=== PATIENT | male | born 1965 | race Caucasian/White ===

== ENCOUNTER 2016-10-24 13:49 | Inpatient (IN) | payer SELFPAY ==
[~2016-10-24] VITALS: Ht 177.8 cm; Wt 100.0 kg
[~2016-10-24 13:49] MED LIST: LACTATED RINGER'S 1000 ML INJ 2,000 ML IV ONE; NALOXONE HCL 2 MG/2 ML VIAL IV ONE; ONDANSETRON HCL 4 MG/2 ML VIAL IV PUSH ONE; PHENYLEPH/NS 1000 MCG/10 ML SYR IV ONE; PROPOFOL 200 MG/20 ML AMP IV ONE
[2016-10-24 13:51] VITALS: BP 205/125; PULSE 130; RESP 20; TEMP 97.7; O2SAT 97
--- NOTE | 2016-10-24 14:15 | PD ---
Physical Exam Date Seen by Provider: Oct 24, 2016 Time Seen by Provider: 14:11 Narrative Patient seen in Triage with Injection type injury to Left Dorsal Proximal Finger from Pain Sprayer at Work approximately 1 hour prior to arrival. Patient has immediate pain and swelling into the dorsal hand. ROM intact, but limited by swelling. Patient denies numbness. No other complaints. Vital signs stable. Patient waiting on room Placement. Data Data Last Documented VS Vital Signs Date Time Temp Pulse Resp B/P Pulse Ox O2 Delivery O2 Flow Rate FiO2 10/24/16 13:51 97.7 130 20 205/125 97 Nasal Cannula [facility] Medical Record Reviewed: Yes Supervised Visit with LA: Yes Condition: Stable Jeffy Rocha Oct 24, 2016 14:15
--- NOTE | 2016-10-24 14:48 | PD ---
HPI Chief Complaint: Injury Time Seen by Provider: 14:47 Travel History International Travel<30 days: No Contact w/Intl Traveler<30days: No Traveled to known affect area: No History of Present Illness HPI 51-year-old male came to the emergency room with history of left hand injury from a spray paint gun. 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 Patient accidentally shot at his left hand index finger dorsally with the paint gun. The patient injected into the hand under the skin surface. There was immediate swelling of the hand which is progressively worsening. This happened 2 hours ago. Patient is complaining of pain. He denies of any medical problems but he does not have a primary care. Patient speaks Vietnamese only and his friend is doing the translation [facility] Past Medical History Narrative Medical List of his past medical, surgical, social and family history was reviewed from the nursing note. Social History Tobacco Use: Yes Allergies-Medications (Allergen,Severity, Reaction): Coded Allergies: No Known Allergies (Unverified , 10/24/16) Comments No known drug allergies. Reported Meds & Prescriptions Reported Meds & Active Scripts Active No Active Prescriptions or Reported Medications Narrative Medication List of his home medications reviewed from the nursing note. Review of Systems Except as stated in HPI: all other systems reviewed are Neg Physical Exam Narrative GENERAL: Awake, alert, moderate distress SKIN: Focused skin assessment warm/dry. HEAD: Atraumatic. Normocephalic. EYES: Pupils equal and round. No scleral icterus. No injection or drainage. ENT: No nasal bleeding or discharge. Mucous membranes pink and moist. NECK: Trachea midline. No JVD. CARDIOVASCULAR: Regular rate and rhythm. No murmur appreciated. RESPIRATORY: No accessory muscle use. Clear to auscultation. Breath sounds equal bilaterally. GASTROINTESTINAL: Abdomen soft, non-tender, nondistended. Hepatic and splenic margins not palpable. MUSCULOSKELETAL: No obvious deformities. No clubbing. No cyanosis. No edema. Left hand is swollen on the radial aspect including the index finger and the hypothenar muscle. Erythema of the skin with a puncture wound with white paint and serous material discharging from the puncture wound. Moderate tenderness to touch. NEUROLOGICAL: Awake and alert. No obvious cranial nerve deficits. Motor grossly within normal limits. Normal speech. PSYCHIATRIC: Appropriate mood and affect; insight and judgment normal. Data Data Last Documented VS Vital Signs Date Time Temp Pulse Resp B/P Pulse Ox O2 Delivery O2 Flow Rate FiO2 10/24/16 16:30 122 16 211/106 96 Room Air 10/24/16 13:51 97.7 Orders Hand, Complete ([id number]) (10/24/16 ) Cefazolin 2 Gm Premix (Ancef 2 Gm Premix (10/24/16 15:00) Tetanus/Diphtheria Tox Adult (Tetanus/Di (10/24/16 15:00) Morphine Inj (Morphine Inj) (10/24/16 15:00) Complete Blood Count With Diff (10/24/16 14:57) Basic Metabolic Panel (Bmp) (10/24/16 14:57) Prothrombin Time / Inr (Pt) (10/24/16 14:57) Sodium Chlor 0.9% 1000 Ml Inj (Ns 1000 M (10/24/16 16:15) Morphine Inj (Morphine Inj) (10/24/16 17:00) Admit Order (Ed Use Only) (10/24/16 16:49) Labs Laboratory Tests Test 10/24/16 15:27 White Blood Count 11.1 TH/MM3 Red Blood Count 4.87 MIL/MM3 Hemoglobin 15.1 GM/DL Hematocrit 43.0 % Mean Corpuscular Volume 88.2 FL Mean Corpuscular Hemoglobin 30.9 PG Mean Corpuscular Hemoglobin 35.0 % Concent Red Cell Distribution Width 13.3 % Platelet Count 278 TH/MM3 Mean Platelet Volume 8.8 FL Neutrophils (%) (Auto) 72.7 % Lymphocytes (%) (Auto) 18.3 % Monocytes (%) (Auto) 7.0 % Eosinophils (%) (Auto) 1.5 % Basophils (%) (Auto) 0.5 % Neutrophils # (Auto) 8.1 TH/MM3 Lymphocytes # (Auto) 2.0 TH/MM3 Monocytes # (Auto) 0.8 TH/MM3 Eosinophils # (Auto) 0.2 TH/MM3 Basophils # (Auto) 0.1 TH/MM3 CBC Comment DIFF FINAL Differential Comment Prothrombin Time 10.3 SEC Prothromb Time International 0.9 RATIO Ratio Sodium Level 140 MEQ/L Potassium Level 3.8 MEQ/L Chloride Level 105 MEQ/L Carbon Dioxide Level 27.8 MEQ/L Anion Gap 7 MEQ/L Blood Urea Nitrogen 20 MG/DL Creatinine 1.47 MG/DL Estimat Glomerular Filtration 51 ML/MIN Rate Random Glucose 128 MG/DL Calcium Level 9.6 MG/DL MDM Medical Decision Making Medical Screen Exam Complete: Yes Emergency Medical Condition: Yes Medical Record Reviewed: Yes Differential Diagnosis Patient gun injury Narrative Course 4:30 PM I discussed the case earlier with the hand surgeon Dr. Larsen. She wanted the picture of the hand wound to be sent to her which has been done. She wants the patient to be nothing by mouth. After she finishes at her office she is going to come and take the patient to the OR. Patient last ate or drank at 11:30 AM. She wanted the patient to be admitted to the hospitalist which has been done. Patient has been given one dose of Ancef and tetanus since he did not remember his last tetanus dose. He is getting IV fluid bolus as well. Blood tests showed some renal insufficiency which is unknown onset. Patient was medicated for pain. Procedures EKG Prior to Arrival: No Physician Communication Physician Communication Dr. Larsen Diagnosis Primary Impression: High-pressure injection injury of finger of left hand Qualified Code: S69.82XA - High-pressure injection injury of finger of left hand, initial encounter Admitting Information Admitting Physician Requests: Admit Scripts No Active Prescriptions or Reported Meds Condition: Stable Rafiq Marcus MD Oct 24, 2016 14:48
[2016-10-24] MEDS ORDERED: MORPHINE SULFATE 4 MG/ML INJ IV PUSH ONE ×2 (15:00→17:00)
[2016-10-24] MEDS ORDERED: ceFAZolin 2 GM PREMIX 50 ML IV ONE (15:00)
[2016-10-24] MEDS ORDERED: TETANUS/DIPHTHERIA TOXOID ADULT 0.5 ML VIAL IM ONE (15:00)
[2016-10-24 15:36] LABS: AUTOMATED NEUTROPHIL # 8.1 TH/MM3 (1.8-7.7); BASOPHIL # 0.1 TH/MM3 (0-0.2); BASOPHIL % 0.5 % (0.0-2.0); EOSINOPHIL # 0.2 TH/MM3 (0-0.4); EOSINOPHIL % 1.5 % (0.0-4.0); HEMO FLAGS DIFF FINAL; LYMPH % 18.3 % (9.0-44.0); MEAN CELL VOLUME 88.2 FL (80.0-100.0); MEAN CORPUSCULAR HEMOGLOBIN 30.9 PG (27.0-34.0); NEUT % 72.7 % (16.0-70.0); PLATELET COUNT 278 TH/MM3 (150-450); RED BLOOD COUNT 4.87 MIL/MM3 (4.50-5.90); RED CELL DISTRIBUTION WIDTH 13.3 % (11.6-17.2); WHITE BLOOD COUNT 11.1 TH/MM3 (4.0-11.0)
--- NOTE | 2016-10-24 15:56 | RADRPT ---
EXAM DATE/TIME: 10/24/2016 15:12 [facility] COMPARISON: No previous studies available for comparison. INDICATIONS : Trauma to Left 2nd digit today when he hit his hand with a paint sprayer. Pt is righ thand dominant. MEDICAL HISTORY : None. SURGICAL HISTORY : None. ENCOUNTER: Initial ACUITY: 1 day PAIN SCORE: 10/10 LOCATION: Left Hand FINDINGS: 3 views left hand reveal linear high density material tracking along the proximal phalanx of the seco nd finger. The density is less than that of cortical bone. This would be consistent with the history of injected paint. No air is observed. Soft tissue swelling noted. No fracture or dislocation. CONCLUSION: Foreign material tracking along the proximal phalanx of the second finger. Dario Lowe Jr., MD on October 24, 2016 at 15:52 Board Certified Radiologist. This report was verified electronically.
[2016-10-24 15:57] LABS: BICARBONATE 27.8 MEQ/L (21.0-32.0); POTASSIUM 3.8 MEQ/L (3.5-5.1)
[2016-10-24 16:06] LABS: INTERNATIONAL NORMALIZED RATIO 0.9 RATIO; PROTHROMBIN TIME - PATIENT 10.3 SEC (9.8-11.6)
[2016-10-24] MEDS ORDERED: SODIUM CHLOR 0.9% 1000 ML INJ 1,000 ML IV ONE (16:15)
[2016-10-24 16:30] VITALS: BP 211/106; PULSE 122; RESP 16; O2SAT 96
[2016-10-24] MEDS ORDERED: ONDANSETRON HCL 4 MG/2 ML VIAL IVP PRN (17:15)
[2016-10-24] MEDS ORDERED: ACETAMINOPHEN/HYDROcodone 325 MG/5 MG TAB PO PRN (17:15)
[2016-10-24] MEDS ORDERED: HYDROmorphone HCL PF 1 MG/ML VIAL IV PRN (17:15)
[2016-10-24] MEDS ORDERED: SODIUM CHLORIDE 0.9% FLUSH 10 ML FLUSH IV FLUSH PRN (17:15)
[2016-10-24] MEDS ORDERED: HYDROmorphone HCL 2 MG TAB PO PRN (17:15)
[2016-10-24] MEDS ORDERED: MAGNESIUM HYDROXIDE SUSP 30 ML CUP PO PRN (17:15)
[2016-10-24] MEDS ORDERED: BISACODYL 10 MG SUPP RECTAL PRN (17:15)
[2016-10-24] MEDS ORDERED: NALOXONE HCL 0.4 MG/ML AMP IV PRN (17:15)
[2016-10-24] MEDS ORDERED: MORPHINE SULFATE 4 MG/ML INJ IV PRN (17:15)
--- NOTE | 2016-10-24 17:23 | HHI.HP ---
[facility] Service [facility] Primary Care Physician No Primary Care Physician Admission Diagnosis hand paint injection injury Diagnoses: Chief Complaint: Accidental injury with Injecting left hand with painting on Travel History International Travel<30 Days: No Contact w/Intl Traveler <30 Da: No Traveled to Known Affected Are: No History of Present Illness 51 years old male presented to the ED with anticipation of injury of injection pain spray or gone in his left dorsal side of the hand about 1 hour prior to arrival, patient have significant swelling in the dorsum of the hand with severe pain and tenderness range of motion of the arm intact there is an area of draining yellowish glue he liquid. Patient rated his pain as 10 out of 10. His blood pressure is 210/120, patient denied being aware of any problem with hypertension, also his heart rate is in the 110 Review of Systems All 10 systems reviewed and was positive for what is mentioned in history of present illness otherwise negative Past Family Social History Past Medical History Patient not aware of having any prior medical history however he does have high blood pressure Allergies: Coded Allergies: No Known Allergies (Unverified , 10/24/16) Family History Review with the patient,not aware of significant medical history runs in his family Social History Denied tobacco alcohol or illicit drug abuse Physical Exam Vital Signs Vital Signs Date Time Temp Pulse Resp B/P Pulse Ox O2 Delivery O2 Flow Rate FiO2 10/24/16 13:51 97.7 130 20 205/125 97 Nasal Cannula Physical Exam GENERAL: This is a well-nourished, well-developed patient, in no apparent distress. SKIN: No rashes, warm and dry HEAD: Atraumatic. Normocephalic. EYES: Pupils equal round and reactive. Extraocular motions intact. No scleral icterus. ENT: Nose without bleeding, or drainage, Airway patent. NECK: Trachea midline. Supple CARDIOVASCULAR: Regular rate and rhythm without murmurs, gallops, or rubs. RESPIRATORY: Fair air entry bilaterally. No wheezes, rales, or rhonchi. GASTROINTESTINAL: Abdomen soft, non-tender, nondistended. Positive bowel sounds MUSCULOSKELETAL: Extremities without clubbing, cyanosis, or edema. Pedal pulses appreciated, right dorsal surface of the hand significantly swollen with puncture area that draining yellowish liquid, very tender to palpation NEUROLOGICAL: Awake and alert. Moves all extremity. Normal speech.no focal neurological deficit Laboratory Laboratory Tests Test 10/24/16 15:27 White Blood Count 11.1 Red Blood Count 4.87 Hemoglobin 15.1 Hematocrit 43.0 Mean Corpuscular Volume 88.2 Mean Corpuscular Hemoglobin 30.9 Mean Corpuscular Hemoglobin 35.0 Concent Red Cell Distribution Width 13.3 Platelet Count 278 Mean Platelet Volume 8.8 Neutrophils (%) (Auto) 72.7 Lymphocytes (%) (Auto) 18.3 Monocytes (%) (Auto) 7.0 Eosinophils (%) (Auto) 1.5 Basophils (%) (Auto) 0.5 Neutrophils # (Auto) 8.1 Lymphocytes # (Auto) 2.0 Monocytes # (Auto) 0.8 Eosinophils # (Auto) 0.2 Basophils # (Auto) 0.1 CBC Comment DIFF FINAL Differential Comment Prothrombin Time 10.3 Prothromb Time International 0.9 Ratio Sodium Level 140 Potassium Level 3.8 Chloride Level 105 Carbon Dioxide Level 27.8 Anion Gap 7 Blood Urea Nitrogen 20 Creatinine 1.47 Estimat Glomerular Filtration 51 Rate Random Glucose 128 Calcium Level 9.6 Result Diagram: 10/24/16 1527 10/24/16 1527 Imaging Last Impressions Hand X-Ray 10/24/16 0000 Signed Impressions: Service Date/Time: September 15:12 - CONCLUSION: Foreign material tracking along the proximal phalanx of the second finger. 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 left hand left had injury with the painting gun with severe pain severe accelerated HTN with tachycardia JUAN vs CKD no known Cr baseline DVT prophilaxis plan: admit to inpt pain management with Percocet /Dilaudid Patient was given cefazolin, will continue Will give a dose of vancomycin, monitor culture ivf UA, livan; failurs pannel inc renal U?S started on norvasc and lopressor low dose , clonidine prn to control bp scd for dvt proph Discussed Condition With Patient ED physician Physician Certification 2 Midnight Certification Type: Admission for Inpatient Services Order for Inpatient Services The services are ordered in accordance with Medicare regulations or non- Medicare payer requirements, as applicable. In the case of services not specified as inpatient-only, they are appropriately provided as inpatient services in accordance with the 2-midnight benchmark. Estimated LOS (days): 2 days is the estimated time the patient will need to remain in the hospital, assuming treatment plan goals are met and no additional complications. Post-Hospital Plan: Not yet determined Dana Sullivan MD Oct 24, 2016 17:23
[2016-10-24] MEDS ORDERED: cloNIDine HCL 0.1 MG TAB PO PRN (17:30)
[2016-10-24] MEDS ORDERED: Vancomycin Consult Pharmacy 1 EA OTHER SCH (17:30)
[2016-10-24] MEDS: SODIUM CHLOR 0.9% 1000 ML INJ 1,000 ML IV SCH (17:53)
[2016-10-24] MEDS: amLODIPine BESYLATE 5 MG TAB PO SCH (17:53)
[2016-10-24 17:57] VITALS: BP 170/107; PULSE 138; RESP 16; O2SAT 95
[2016-10-24] MEDS ORDERED: VANCOMYCIN INJ 1,500 MG in SODIUM CHLORID 0.9% 500 ML INJ 500 ML IV ONE (18:00)
[2016-10-24 18:53] VITALS: BP 187/104; PULSE 130; RESP 20; O2SAT 96
--- NOTE | 2016-10-24 19:05 | RADRPT ---
EXAM DATE/TIME: 10/24/2016 18:07 [facility] COMPARISON: No previous studies available for comparison. INDICATIONS : Acute kidney injurey on chronic kidney disease. MEDICAL HISTORY : Left hand paint injection injury. Chronic kidney disease. SURGICAL HISTORY : None. ENCOUNTER: Initial ACUITY: 1 day PAIN SCORE: 5/10 LOCATION: Bilateral flank MEASUREMENTS: RIGHT KIDNEY: 10.4 x 6.0 x 6.2 cm LEFT KIDNEY: 10.6 x 6.2 x 5.4 cm COMPLETE APPROPRIATE ITEMS PRE PROCEDURE: ID x 2: Complete NameDate of BirthPatient Name Band Education: Nurse/Technologist explained proce dure to patient/family. Patient/family demonstrates understanding of procedure. FINDINGS: RIGHT KIDNEY: Renal cortex is normal in thickness and echotexture. No hydronephrosis, stone, or mass. There is a possible column of Lucien on the right. Outpatient CT or MRI of the abdomen with contrast may be help ful to rule out subtle solid mass if clinically indicated. LEFT KIDNEY: Renal cortex is normal in thickness and echotexture. No hydronephrosis, stone, or mass. BLADDER: Within normal limits given the degree of distension. CONCLUSION: Possible column of Lucien in the right. Outpatient CT or MRI of the abdomen with contrast may be help ful to rule out subtle solid mass if clinically indicated. Landry Delgado MD on October 24, 2016 at 19:01 Board Certified Radiologist. This report was verified electronically.
[2016-10-24] MEDS ORDERED: LIDOCAINE HCL 2% 50 ML VIAL ONE (19:21)
[2016-10-24] MEDS ORDERED: HYDROmorphone HCL PF 2 MG/ML VIAL ONE (19:31)
[2016-10-24] MEDS ORDERED: NEOMYCIN/POLYMYXIN 1 ML G.U. IRRIGANT TOPICAL ONE (20:02)
[2016-10-24] MEDS ORDERED: LIDOCAINE HCL 2% 50 ML VIAL INFIL ONE (20:02)
[2016-10-24] MEDS: METOPROLOL TARTRATE 25 MG TAB PO SCH (21:00)
[2016-10-24] MEDS: SODIUM CHLORIDE 0.9% FLUSH 10 ML FLUSH IV FLUSH SCH (21:00)
[2016-10-24] MEDS ORDERED: MIDAZOLAM HCL 2 MG/2 ML VIAL ONE (22:08)
[2016-10-25] VITALS: BP 138/87; PULSE 120; RESP 18; TEMP 98.8; O2SAT 96
--- NOTE | 2016-10-25 00:33 | PD.ORT.PN ---
Subjective Subjective Remarks Patient reports pain controlled Objective Vitals Vital Signs Date Time Temp Pulse Resp B/P Pulse Ox O2 Delivery O2 Flow Rate FiO2 10/24/16 22:53 Nasal Cannula 2.00 10/24/16 22:45 101.1 127 16 131/92 98 Nasal Cannula 2 10/24/16 22:30 127 16 149/77 95 Nasal Cannula 2 10/24/16 22:15 133 16 158/99 96 Nasal Cannula 2 10/24/16 22:00 132 16 147/82 97 Nasal Cannula 2 10/24/16 21:55 100.4 129 16 149/90 96 Nasal Cannula 2 10/24/16 18:53 130 20 187/104 96 Room Air 10/24/16 17:57 138 16 170/107 95 Room Air 10/24/16 17:54 16 10/24/16 16:30 122 16 211/106 96 Room Air 10/24/16 13:51 97.7 130 20 205/125 97 Nasal Cannula I/O 10/24/16 10/24/16 10/24/16 10/25/16 10/25/16 10/25/16 07:00 15:00 23:00 07:00 15:00 23:00 Intake Total 2200 ml Output Total 150 ml Balance 2050 ml Intake IV Total 200 ml Other 2000 ml Output Estimated Blood Loss 150 ml Result Diagram: 10/24/16 1527 10/24/16 1527 Other Results Laboratory Tests Test 10/24/16 15:27 Prothrombin Time 10.3 SEC (9.8-11.6) Prothromb Time International 0.9 RATIO Ratio Objective Remarks VAC holding suction, <2 sec capillary refill to left index finger Assessment & Plan Assessment and Plan POD0 s/p debridement paint left index finger after high injection paint injury at work with wound VAC placement due to significant contamination and swelling -VAC 125mmHg continuous suction -neurovascular checks to left index finger -likely return to OR this or Friday for repeat I&D possible closure possible skin graft -patient understands high risk of necrosis of skin and finger and need for amputation due to high pressure paint injection injury -IV Ab per ID -patient to remain in hospital and off work -will continue to follow closely Vandana Larsen MD Oct 25, 2016 00:33
[2016-10-25] MEDS: SODIUM CHLOR 0.9% 1000 ML INJ 1,000 ML IV SCH ×3 (01:14→21:15)
[2016-10-25 04:00] VITALS: BP 110/68; PULSE 97; RESP 20; TEMP 96.4; O2SAT 98
[2016-10-25 07:45] LABS: ALKALINE PHOSPHATASE 52 U/L (45-117); ALT (GPT) 36 U/L (12-78); ANION GAP 9 MEQ/L (5-15); AST (GOT) 23 U/L (15-37); BICARBONATE 24.8 MEQ/L (21.0-32.0); BLOOD UREA NITROGEN 22 MG/DL (7-18); CHLORIDE 104 MEQ/L (98-107); GLOMERULAR FILTRATION RATE 49 ML/MIN (>89); POTASSIUM 4.6 MEQ/L (3.5-5.1); SODIUM (NA) 138 MEQ/L (136-145); TOTAL BILIRUBIN ADULT 0.4 MG/DL (0.2-1.0)
[2016-10-25 08:00] VITALS: BP 129/82; PULSE 95; RESP 18; TEMP 96.4; O2SAT 98
[2016-10-25] MEDS: METOPROLOL TARTRATE 25 MG TAB PO SCH ×2 (09:14→21:14)
[2016-10-25] MEDS: HEPARIN SODIUM - SQ 10,000 UNITS/ML VIAL SQ SCH ×3 (09:14→21:15)
[2016-10-25] MEDS: ACETAMINOPHEN/HYDROcodone 325 MG/7.5 MG TAB PO PRN ×2 (09:15→15:09)
[2016-10-25] MEDS: amLODIPine BESYLATE 5 MG TAB PO SCH (09:15)
[2016-10-25] MEDS: SODIUM CHLORIDE 0.9% FLUSH 10 ML FLUSH IV FLUSH SCH ×2 (09:15→21:00)
[2016-10-25 12:00] VITALS: BP 115/67; PULSE 69; RESP 17; TEMP 97.6; O2SAT 98
[2016-10-25] MEDS ORDERED: VANCOMYCIN INJ 1,500 MG in SODIUM CHLORID 0.9% 500 ML INJ 500 ML IV ONE (12:00)
--- NOTE | 2016-10-25 12:04 | HHI.PR ---
Subjective Remarks Patient laying in bed comfortably, family at the bedside He is status post I&D and wound VAC, iv antibiotic No fever or chills overnight Objective Vitals Vital Signs Date Time Temp Pulse Resp B/P Pulse Ox O2 Delivery O2 Flow Rate FiO2 10/25/16 08:00 96.4 95 18 129/82 98 10/25/16 06:55 Nasal Cannula 2.00 10/25/16 04:00 96.4 97 20 110/68 98 10/25/16 00:00 98.8 120 18 138/87 96 10/24/16 22:53 Nasal Cannula 2.00 10/24/16 22:45 101.1 127 16 131/92 98 Nasal Cannula 2 10/24/16 22:30 127 16 149/77 95 Nasal Cannula 2 10/24/16 22:15 133 16 158/99 96 Nasal Cannula 2 10/24/16 22:00 132 16 147/82 97 Nasal Cannula 2 10/24/16 21:55 100.4 129 16 149/90 96 Nasal Cannula 2 10/24/16 18:53 130 20 187/104 96 Room Air 10/24/16 17:57 138 16 170/107 95 Room Air 10/24/16 17:54 16 10/24/16 16:30 122 16 211/106 96 Room Air 10/24/16 13:51 97.7 130 20 205/125 97 Nasal Cannula I/O 10/24/16 10/24/16 10/24/16 10/25/16 10/25/16 10/25/16 07:00 15:00 23:00 07:00 15:00 23:00 Intake Total 2200 ml 240 ml Output Total 150 ml 50 ml Balance 2050 ml 190 ml Intake Oral 240 ml IV Total 200 ml Other 2000 ml Output Drainage Total 50 ml Estimated Blood Loss 150 ml # Voids 1 # Bowel Movements 0 Result Diagram: 10/24/16 1527 10/25/16 0548 Objective Remarks - - GENERAL: This is a well-nourished, well-developed patient, in no apparent distress. CARDIOVASCULAR: Regular rate and rhythm without murmurs, gallops, or rubs. RESPIRATORY: Clear to auscultation. Breath sounds equal bilaterally. No wheezes , rales, or rhonchi. GASTROINTESTINAL: Abdomen soft, non-tender, nondistended. Normal active bowel sounds MUSCULOSKELETAL: Extremities without clubbing, cyanosis, or edema. Left hand in gauze and wound VAC applied NEURO: Alert & Oriented x4 to person, place, time, situation. 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 left had injury with the painting gun with severe pain severe accelerated HTN with tachycardia JUAN vs CKD no known Cr baseline DVT prophilaxis plan: Appreciated hand surgeon consult and help, status post I&D with wound VAC 10/24 pain management with Percocet /Dilaudid Patient was given cefazolin, will continue Will give a dose of vancomycin, monitor culture , consult ID Renal ultrasound reviewed personally by me showing possible mass need to be followed up with CT or MRI as an outpt UA still pending started on norvasc and lopressor low dose , clonidine prn to control bp scd for dvt proph Dana Sullivan MD Oct 25, 2016 12:04
--- NOTE | 2016-10-25 14:37 | PD.CONS ---
History of Present Illness Service Infectious disease Consult Requested By Dr. Genet Larsen Reason for Consult Evaluate patient who had a spray paint injury to the left hand Primary Care Physician No Primary Care Physician Diagnoses: History of Present Illness Patient seen and examined. Records reviewed. 51-year-old male came to the emergency room with history of left hand injury from a spray paint gun. 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 Patient accidentally shot at his left hand index finger dorsally with the paint gun. There was immediate swelling of the hand which is progressively worsening. Patient is complaining of pain. Patient was seen by hand surgery, and underwent debridement of his left index finger. There was removal of foreign body. He has not been febrile. He has minimal pain in the left upper extremity. Infectious disease consultation has been requested to evaluate the patient. Review of Systems Constitutional: DENIES: Fever, Chills Eyes: DENIES: Eye pain Ears, nose, mouth, throat: DENIES: Nasal discharge, Oral lesions, Sinus Pain, Toothache Respiratory: DENIES: Cough, Shortness of breath Cardiovascular: DENIES: Chest pain, Palpitations Gastrointestinal: DENIES: Abdominal pain, Diarrhea, Nausea, Vomiting Genitourinary: DENIES: Dysuria Musculoskeletal: COMPLAINS OF: Joint pain, Joint Swelling Integumentary: DENIES: Rash Neurologic: DENIES: Headache Psychiatric: DENIES: Hallucinations Past Family Social History Allergies: Coded Allergies: No Known Allergies (Unverified , 10/24/16) Past Medical History None Past Surgical History Surgery for tonsillectomy as a child Active Ordered Medications [place] Norvasc Dulcolax Ancef Clonidine Heparin Dilaudid MOM Lopressor Morphine Zofran Social History , originally from [place] No smoking Drinks beer on weekends No illicit drugs Physical Exam Vital Signs Vital Signs Date Time Temp Pulse Resp B/P Pulse Ox O2 Delivery O2 Flow Rate FiO2 10/25/16 12:00 97.6 69 17 115/67 98 10/25/16 08:00 96.4 95 18 129/82 98 10/25/16 06:55 Nasal Cannula 2.00 10/25/16 04:00 96.4 97 20 110/68 98 10/25/16 00:00 98.8 120 18 138/87 96 10/24/16 22:53 Nasal Cannula 2.00 10/24/16 22:45 101.1 127 16 131/92 98 Nasal Cannula 2 3/30/17 22:30 127 16 149/77 95 Nasal Cannula 2 10/24/16 22:15 133 16 158/99 96 Nasal Cannula 2 10/24/16 22:00 132 16 147/82 97 Nasal Cannula 2 10/24/16 21:55 100.4 129 16 149/90 96 Nasal Cannula 2 10/24/16 18:53 130 20 187/104 96 Room Air 10/24/16 17:57 138 16 170/107 95 Room Air 10/24/16 17:54 16 10/24/16 16:30 122 16 211/106 96 Room Air Physical Exam GENERAL: This is a well-nourished, well-developed male, awake and alert, in no apparent distress. SKIN: Cool and dry. No generalized rash or ecchymosis HEAD: Atraumatic. Normocephalic. No temporal or scalp tenderness. EYES: [place] conjunctivae. Pupils equal round and reactive. Extraocular motions intact. No scleral icterus. No injection or drainage. ENT: Nose without bleeding, or purulent drainage. Moist oral mucosa. Throat without erythema, or exudate. Uvula midline. Airway patent. NECK: Trachea midline. No JVD or lymphadenopathy. Supple, nontender, no meningeal signs. CARDIOVASCULAR: Regular rate and rhythm without murmurs, gallops, or rubs. RESPIRATORY: Clear to auscultation. Breath sounds equal bilaterally. No wheezes , rales, or rhonchi. GASTROINTESTINAL: Abdomen soft, non-tender, nondistended. No hepato-splenomegaly , or palpable masses. No guarding. MUSCULOSKELETAL: Has bulky intact dry dressing on his left upper extremity. Lower extremities without clubbing, cyanosis, or edema. No joint tenderness, effusion. No calf tenderness. Negative Homans sign bilaterally. NEUROLOGICAL: Awake and alert. Cranial nerves II through XII intact. Motor and sensory grossly within normal limits. Five out of 5 muscle strength in all muscle groups. Normal speech. PSYCH: Calm and cooperative. Normal affect LINE: PIV with no evidence of infection Laboratory Laboratory Tests Test 10/24/16 10/25/16 15:27 05:48 White Blood Count 11.1 Red Blood Count 4.87 Hemoglobin 15.1 Hematocrit 43.0 Mean Corpuscular Volume 88.2 Mean Corpuscular Hemoglobin 30.9 Mean Corpuscular Hemoglobin 35.0 Concent Red Cell Distribution Width 13.3 Platelet Count 278 Mean Platelet Volume 8.8 Neutrophils (%) (Auto) 72.7 Lymphocytes (%) (Auto) 18.3 Monocytes (%) (Auto) 7.0 Eosinophils (%) (Auto) 1.5 Basophils (%) (Auto) 0.5 Neutrophils # (Auto) 8.1 Lymphocytes # (Auto) 2.0 Monocytes # (Auto) 0.8 Eosinophils # (Auto) 0.2 Basophils # (Auto) 0.1 CBC Comment DIFF FINAL Differential Comment Prothrombin Time 10.3 Prothromb Time International 0.9 Ratio Sodium Level 140 138 Potassium Level 3.8 4.6 Chloride Level 105 104 Carbon Dioxide Level 27.8 24.8 Anion Gap 7 9 Blood Urea Nitrogen 20 22 Creatinine 1.47 1.51 Estimat Glomerular Filtration 51 49 Rate Random Glucose 128 197 Calcium Level 9.6 8.3 Total Bilirubin 0.4 Aspartate Amino Transf 23 (AST/SGOT) Alanine Aminotransferase 36 (ALT/SGPT) Alkaline Phosphatase 52 Total Protein 6.9 Albumin 3.2 Result Diagram: 10/24/16 1527 10/25/16 0548 Imaging RADIOLOGY STUDIES/FILMS REVIEWED Renal Ultrasound 10/24/16 0000 Signed Impressions: Service Date/Time: September 18:07 - CONCLUSION: Possible column of Lucien in the right. Outpatient CT or MRI of the abdomen with contrast may be helpful to rule out subtle solid mass if clinically indicated. Landry Delgado MD Hand X-Ray 10/24/16 0000 Signed Impressions: Service Date/Time: September 15:12 - CONCLUSION: Foreign material tracking along the proximal phalanx of the second finger. Dario Lowe Jr., MD Assessment and Plan Assessment and Plan IMPRESSION [place] paint injury LIF, contamninated wound - S/P debridement RECOMMENDATION IV Unasyn Will try to examine wound when ok with hand surgeon Possible repeat debridement next week Did not see any C/S done from surgery yesterday Will follow Monitor progress Thank you for this consultation Maude Krishnamurthy MD Oct 25, 2016 14:37
[2016-10-25] MEDS: AMPICILLIN-SULBACTAM INJ 3 GM in SODIUM CHLORIDE 0.9% INJ 100 ML IV SCH ×2 (14:58→21:14)
[2016-10-25 15:40] LABS: BLOOD, URINE NEG (NEG); GLUCOSE,URINE 1000 mg/dL (NEG); KETONE, URINE NEG (NEG); NITRITE,URINE NEG (NEG); URINE COLOR LIGHT-YELLOW (YELLW/STRAW)
[2016-10-25 15:42] LABS: COMMENT (UR) CULT NOT INDICATED; CULTURE IF INDICATED CULT NOT INDICATED
[2016-10-25 16:00] VITALS: BP 137/93; PULSE 100; RESP 16; TEMP 98.1; O2SAT 100
[2016-10-25] MEDS: VANCOMYCIN INJ 1,500 MG in SODIUM CHLORID 0.9% 500 ML INJ 500 ML IV SCH (18:15)
--- NOTE | 2016-10-25 18:46 | PD.ORT.PN ---
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 Patient reports minimal pain. Denies paresthesias. Objective Vitals Vital Signs Date Time Temp Pulse Resp B/P Pulse Ox O2 Delivery O2 Flow Rate FiO2 10/25/16 16:00 98.1 100 16 137/93 100 10/25/16 12:00 97.6 69 17 115/67 98 10/25/16 08:00 96.4 95 18 129/82 98 10/25/16 06:55 Nasal Cannula 2.00 10/25/16 04:00 96.4 97 20 110/68 98 10/25/16 00:00 98.8 120 18 138/87 96 10/24/16 22:53 Nasal Cannula 2.00 10/24/16 22:45 101.1 127 16 131/92 98 Nasal Cannula 2 10/24/16 22:30 127 16 149/77 95 Nasal Cannula 2 10/24/16 22:15 133 16 158/99 96 Nasal Cannula 2 10/24/16 22:00 132 16 147/82 97 Nasal Cannula 2 10/24/16 21:55 100.4 129 16 149/90 96 Nasal Cannula 2 10/24/16 18:53 130 20 187/104 96 Room Air I/O 10/24/16 10/24/16 10/24/16 10/25/16 10/25/16 10/25/16 07:00 15:00 23:00 07:00 15:00 23:00 Intake Total 2200 ml 240 ml 720 ml Output Total 150 ml 50 ml 620 ml Balance 2050 ml 190 ml 100 ml Intake Oral 240 ml 720 ml IV Total 200 ml Other 2000 ml Output Urine Total 600 ml Drainage Total 50 ml 20 ml Estimated Blood Loss 150 ml # Voids 1 3 # Bowel Movements 0 Result Diagram: 10/24/16 1527 10/25/16 0548 Objective Remarks VAC holding suction, <2 sec capillary refill to left index finger, splint removed. patient able to fire fdp, fds, finger extensors, sitlt radial and ulnar aspect left index finger, some necrosis of skin edges Assessment & Plan Assessment and Plan POD1 s/p debridement paint left index finger after high injection paint injury at work with wound VAC placement due to significant contamination and swelling -VAC 125mmHg continuous suction -neurovascular checks to left index finger -OR tomorrow AM for repeat I&D possible closure possible skin graft -patient understands high risk of necrosis of skin and finger and need for amputation due to high pressure paint injection injury -IV Ab per ID -patient to remain in hospital and off work -will continue to follow closely Vandana Larsen MD Oct 25, 2016 18:46
[2016-10-25 20:25] VITALS: BP 176/97; PULSE 103; RESP 18; TEMP 98.2; O2SAT 99
[2016-10-26] VITALS (8 sets, daily range): BP systolic 114–150; BP diastolic 75–97; PULSE 74–92; RESP 16–22; TEMP 96.2–98; O2SAT 96–100
[2016-10-26] MEDS: LACTATED RINGER'S 1000 ML INJ 1,000 ML IV SCH (01:45)
[2016-10-26] MEDS ORDERED: INSULIN HUMAN REGULAR 1,000 UNITS/10 ML VIAL SQ PRN (01:45)
[2016-10-26] MEDS ORDERED: CHLORHEXIDINE GLUCONATE 2 % 1 PACK (2 CLOTHS) TOPICAL PRN (01:45)
[2016-10-26] MEDS ORDERED: POVIDONE IODINE 5% (ANTISEPSIS KIT) 4 APPLICATIONS EACH NARE PRN (01:45)
[2016-10-26] MEDS ORDERED: SODIUM CHLORID 0.9% 500 ML IV PRN (01:45)
[2016-10-26] MEDS: AMPICILLIN-SULBACTAM INJ 3 GM in SODIUM CHLORIDE 0.9% INJ 100 ML IV SCH ×4 (03:37→20:48)
[2016-10-26] MEDS: METOPROLOL TARTRATE 25 MG TAB PO SCH ×2 (06:16→20:48)
[2016-10-26] MEDS ORDERED: MIDAZOLAM HCL 2 MG/2 ML VIAL ONE ×2 (08:08→14:17)
[2016-10-26] MEDS ORDERED: NEOMYCIN/POLYMYXIN 1 ML G.U. IRRIGANT IR ONE (08:53)
[2016-10-26] MEDS: SODIUM CHLORIDE 0.9% FLUSH 10 ML FLUSH IV FLUSH SCH ×2 (09:00→20:50)
[2016-10-26] MEDS: amLODIPine BESYLATE 5 MG TAB PO SCH (09:00)
[2016-10-26] MEDS: SODIUM CHLOR 0.9% 1000 ML INJ 1,000 ML IV SCH (09:13)
[2016-10-26] MEDS ORDERED: BACITRACIN TOP OINT 15 GM TUBE ONE (09:18)
[2016-10-26] MEDS ORDERED: DO NOT ADM ANY ANTICOAGULANT DRUGS PRN (09:54)
[2016-10-26] MEDS ORDERED: *morphine SULFATE 8 MG/ML PERIprocedure ONLY ONE ×2 (10:05→10:31)
[2016-10-26] MEDS: HEPARIN SODIUM - SQ 10,000 UNITS/ML VIAL SQ SCH ×2 (10:15→19:05)
--- NOTE | 2016-10-26 10:29 | PD.ORT.PN ---
Subjective Subjective Remarks Patient reports moderate pain. Denies paresthesias. Objective Vitals Vital Signs Date Time Temp Pulse Resp B/P Pulse Ox O2 Delivery O2 Flow Rate FiO2 10/26/16 07:48 97.6 83 16 150/97 96 10/26/16 04:00 96.2 78 18 139/93 100 10/26/16 00:00 98.0 92 20 130/85 96 10/25/16 20:25 98.2 103 18 176/97 99 10/25/16 18:45 Nasal Cannula 2.00 10/25/16 16:00 98.1 100 16 137/93 100 10/25/16 12:00 97.6 69 17 115/67 98 I/O 10/25/16 10/25/16 10/25/16 10/26/16 10/26/16 10/26/16 07:00 15:00 23:00 07:00 15:00 23:00 Intake Total 240 ml 720 ml 1711 ml 1136 ml Output Total 50 ml 620 ml 50 ml 650 ml Balance 190 ml 100 ml 1661 ml 486 ml Intake Oral 240 ml 720 ml 780 ml 240 ml IV Total 931 ml 896 ml Output Urine Total 600 ml 650 ml Drainage Total 50 ml 20 ml 50 ml 0 ml # Voids 1 3 3 1 # Bowel Movements 0 0 0 Result Diagram: 10/24/16 1527 10/26/16 0604 Objective Remarks dressing in place, <2 sec capillary refill to finger Assessment & Plan Assessment and Plan POD2 s/p debridement paint left index finger after high injection paint injury at work with wound VAC placement due to significant contamination and swelling POD0 s/p I&D, closure left index finger over jamison drain -Reinforce dressing as needed -neurovascular checks to left index finger -IV Ab per ID -patient to remain in hospital and off work -will likely consult OT tomorrow for ROM -will continue to follow closely Vandana Larsen MD Oct 26, 2016 10:29
[2016-10-26] MEDS ORDERED: LABETALOL HCL 100 MG/20 ML VIAL ONE (10:31)
[2016-10-26] MEDS: ACETAMINOPHEN/HYDROcodone 325 MG/7.5 MG TAB PO PRN (11:44)
[2016-10-26] MEDS ORDERED: PROPOFOL 200 MG/20 ML AMP IV ONE (12:00)
[2016-10-26] MEDS ORDERED: ONDANSETRON HCL 4 MG/2 ML VIAL IV PUSH ONE (12:00)
--- NOTE | 2016-10-26 16:11 | HHI.PR ---
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 He's doing well he had his hand wound reviewed by the hand surgeon this morning , awaiting culture and ID to decide on the discharge antibiotic Patient has been afebrile overnight Objective Vitals Vital Signs Date Time Temp Pulse Resp B/P Pulse Ox O2 Delivery O2 Flow Rate FiO2 10/26/16 14:28 82 119/78 98 10/26/16 11:26 97.6 92 17 138/80 97 10/26/16 10:45 97.8 88 16 137/89 97 Nasal Cannula 3 10/26/16 10:38 88 16 133/92 92 Room Air 10/26/16 10:30 102 16 156/100 95 Room Air 10/26/16 10:15 100 16 146/83 95 Room Air 10/26/16 09:59 97.6 105 16 142/82 93 Room Air 10/26/16 07:48 97.6 83 16 150/97 96 10/26/16 04:00 96.2 78 18 139/93 100 10/26/16 00:00 98.0 92 20 130/85 96 10/25/16 20:25 98.2 103 18 176/97 99 10/25/16 18:45 Nasal Cannula 2.00 I/O 10/25/16 10/25/16 10/25/16 10/26/16 10/26/16 10/26/16 07:00 15:00 23:00 07:00 15:00 23:00 Intake Total 240 ml 720 ml 1711 ml 1136 ml 1200 ml Output Total 50 ml 620 ml 50 ml 650 ml 10 ml Balance 190 ml 100 ml 1661 ml 486 ml 1190 ml Intake Oral 240 ml 720 ml 780 ml 240 ml IV Total 931 ml 896 ml 200 ml Other 1000 ml Output Urine Total 600 ml 650 ml Drainage Total 50 ml 20 ml 50 ml 0 ml Estimated Blood Loss 10 ml # Voids 1 3 3 1 # Bowel Movements 0 0 0 Result Diagram: 10/24/16 1527 10/26/16 0604 Objective Remarks - - GENERAL: This is a well-nourished, well-developed patient, in no apparent distress. CARDIOVASCULAR: Regular rate and rhythm without murmurs, gallops, or rubs. RESPIRATORY: Clear to auscultation. Breath sounds equal bilaterally. No wheezes , rales, or rhonchi. GASTROINTESTINAL: Abdomen soft, non-tender, nondistended. Normal active bowel sounds MUSCULOSKELETAL: Extremities without clubbing, cyanosis, or edema. Left hand in gauze and wound VAC applied NEURO: Alert & Oriented x4 to person, place, time, situation. 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 left had injury with the painting gun with severe pain severe accelerated HTN with tachycardia JUAN vs CKD no known Cr baseline DVT prophilaxis plan: Appreciated hand surgeon consult and help, status post I&D with wound VAC 10/24, status post revision closure removing wound VAC 10/26, awaiting culture and ID input for discharge antibiotic pain management with Percocet /Dilaudid Patient was given cefazolin, appreciate ID consult, added Unasyn with the vancomycin Renal ultrasound reviewed personally by me showing possible mass need to be followed up with CT or MRI as an outpt UA only positive for clue dysuria started on norvasc and lopressor low dose , clonidine prn to control bp scd for dvt proph Dana Sullivan MD Oct 26, 2016 16:11
[2016-10-26] MEDS ORDERED: Vancomycin Consult Pharmacy 1 EA IV SCH (18:15)
[2016-10-26] MEDS: VANCOMYCIN INJ 1,500 MG in SODIUM CHLORID 0.9% 500 ML INJ 500 ML IV SCH (18:55)
--- NOTE | 2016-10-26 21:54 | MB ---
cc: EDNA PERERA MD DATE OF CONSULTATION 10/24/2016 REASON FOR CONSULTATION High-pressure paint gun injury left hand and left index finger. HISTORY OF PRESENT ILLNESS Konstantin Berg is a pleasant 51-year-old right-hand dominant male who speaks Afghan who was at work this afternoon when he sustained a high pressure paint gun injury to the left hand. I was called by the emergency room for evaluation. I spoke with the patient through an personal fitness manager. The patient reported pain and paresthesias over the index finger. Denied any significant prior injuries to the left hand. He states that he has not seen a doctor in years and presents today with an elevated blood pressure. He lives in [place] but states he was at work here in [place]. He denies any other areas of injury. PAST MEDICAL HISTORY The patient denies past medical history but has significant hypertension today. ALLERGIES No known drug allergies SOCIAL HISTORY Denies tobacco or drug use. 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 PHYSICAL EXAMINATION On evaluation, blood pressure was 170/100. Exam of the left hand showed a puncture wound over the dorsum of the left index finger at the level of the proximal phalanx with paint oozing from the wound. There was less than 2-second capillary refill to the finger. Decreased sensation on the radial and ulnar side. Pain with range of motion of the index finger. Significant swelling dorsally over the hand. IMAGING STUDIES X-ray of the left hand shows foreign material tracking along the proximal phalanx of the left index finger. ASSESSMENT/PLAN A 51-year-old right-hand dominant male after a high pressure paint gun injury to the left hand. At this time, I recommended emergent irrigation, debridement, possible VAC, surgery as indicated. The patient understands he is at high risk for complications from this injury as it is very severe due to the high pressure and foreign material including necrosis, amputation of the finger, need for additional surgeries, stiffness, pain. The patient signed informed consent through a biometric screener. I called the operating room and made this an emergent case. The patient will be admitted to the hospitalist for IV antibiotics and management of medical issues including his severe hypertension. MD LISETH Robles/ /9:27 PM /9:40 PM [place]
--- NOTE | 2016-10-26 23:08 | HHI.IDPN ---
Subjective Subjective Remarks Delayed entry - pt was seen around 1800 today X cover Chart was reviewed 51 yo M sustained pressure injyry to his L Index finger sp debridement clx not availbale BC negative feels better afebrile received dT in ER Antibiotics vidal platt Allergies: Coded Allergies: No Known Allergies (Unverified , 10/24/16) Objective . Vital Signs Date Time Temp Pulse Resp B/P Pulse Ox O2 Delivery O2 Flow Rate FiO2 10/26/16 20:00 97.0 74 22 141/87 98 10/26/16 18:18 98 21 10/26/16 15:55 97.0 74 16 114/75 98 10/26/16 14:28 82 119/78 98 10/26/16 11:26 97.6 92 17 138/80 97 10/26/16 10:45 97.8 88 16 137/89 97 Nasal Cannula 3 10/26/16 10:38 88 16 133/92 92 Room Air 10/26/16 10:30 102 16 156/100 95 Room Air 10/26/16 10:15 100 16 146/83 95 Room Air 10/26/16 09:59 97.6 105 16 142/82 93 Room Air 10/26/16 07:48 97.6 83 16 150/97 96 10/26/16 04:00 96.2 78 18 139/93 100 10/26/16 00:00 98.0 92 20 130/85 96 10/25/16 10/25/16 10/26/16 15:00 23:00 07:00 Intake Total 720 ml 1711 ml 1136 ml Output Total 620 ml 50 ml 650 ml Balance 100 ml 1661 ml 486 ml Intake Oral 720 ml 780 ml 240 ml IV Total 931 ml 896 ml Output Urine Total 600 ml 650 ml Drainage Total 20 ml 50 ml 0 ml # Voids 3 3 1 # Bowel Movements 0 0 . Laboratory Tests Test 10/25/16 10/26/16 05:48 06:04 Sodium Level 138 MEQ/L Potassium Level 4.6 MEQ/L Chloride Level 104 MEQ/L Carbon Dioxide Level 24.8 MEQ/L Anion Gap 9 MEQ/L Blood Urea Nitrogen 22 MG/DL Creatinine 1.51 MG/DL 0.97 MG/DL Estimat Glomerular Filtration 49 ML/MIN 82 ML/MIN Rate Random Glucose 197 MG/DL Calcium Level 8.3 MG/DL Total Bilirubin 0.4 MG/DL Aspartate Amino Transf 23 U/L (AST/SGOT) Alanine Aminotransferase 36 U/L (ALT/SGPT) Alkaline Phosphatase 52 U/L Total Protein 6.9 GM/DL Albumin 3.2 GM/DL Imaging Last Impressions Renal Ultrasound 10/24/16 0000 Signed Impressions: Service Date/Time: September 18:07 - CONCLUSION: Possible column of Lucien in the right. Outpatient CT or MRI of the abdomen with contrast may be helpful to rule out subtle solid mass if clinically indicated. Landry Delgado MD Hand X-Ray 10/24/16 0000 Signed Impressions: Service Date/Time: September 15:12 - CONCLUSION: Foreign material tracking along the proximal phalanx of the second finger. Dario Lowe Jr., MD Physical Exam GENERAL: This is a well-nourished, well-developed male, awake and alert, in no apparent distress. SKIN: Cool and dry. No generalized rash or ecchymosis NECK: Trachea midline. No JVD or lymphadenopathy. Supple, nontender, no meningeal signs. CARDIOVASCULAR: Regular rate and rhythm without murmurs, gallops, or rubs. RESPIRATORY: Clear to auscultation. Breath sounds equal bilaterally. No wheezes , rales, or rhonchi. GASTROINTESTINAL: Abdomen soft, non-tender, nondistended. No hepato-splenomegaly , or palpable masses. No guarding. MUSCULOSKELETAL: Has bulky intact dry dressing on his left upper extremity. Lower extremities without clubbing, cyanosis, or edema. NEUROLOGICAL: Awake and alert. Non focal PSYCH: Calm and cooperative. Normal affect LINE: PIV with no evidence of infection Assessment & Plan Remarks Assessment and Plan IMPRESSION [place] paint injury LIF, contamninated wound - S/P debridement RECOMMENDATION cont Unasyn cont vanco needs clx to further guide abx dw Diana Ng MD Oct 26, 2016 23:08
[2016-10-27] VITALS (7 sets, daily range): BP systolic 134–167; BP diastolic 84–93; PULSE 75–98; RESP 16–18; TEMP 97–99.1; O2SAT 95–100
[2016-10-27] MEDS: LACTATED RINGER'S 1000 ML INJ 1,000 ML IV SCH (01:45)
[2016-10-27] MEDS: HEPARIN SODIUM - SQ 10,000 UNITS/ML VIAL SQ SCH ×3 (02:53→19:15)
[2016-10-27] MEDS: SODIUM CHLOR 0.9% 1000 ML INJ 1,000 ML IV SCH ×4 (02:54→22:41)
[2016-10-27] MEDS: AMPICILLIN-SULBACTAM INJ 3 GM in SODIUM CHLORIDE 0.9% INJ 100 ML IV SCH ×4 (02:54→20:18)
[2016-10-27 06:23] LABS: AUTOMATED NEUTROPHIL # 4.4 TH/MM3 (1.8-7.7); BASOPHIL # 0.1 TH/MM3 (0-0.2); BASOPHIL % 0.9 % (0.0-2.0); EOSINOPHIL # 0.3 TH/MM3 (0-0.4); EOSINOPHIL % 3.9 % (0.0-4.0); HEMATOCRIT 34.3 % (39.0-51.0); HEMO FLAGS DIFF FINAL; LYMPH % 34.7 % (9.0-44.0); MEAN CELL VOLUME 91.1 FL (80.0-100.0); MEAN CORPUSCULAR HEMOGLOBIN 30.2 PG (27.0-34.0); MEAN CORPUSCULAR HGB CONC 33.1 % (32.0-36.0); MONO % 8.4 % (0.0-8.0); NEUT % 52.1 % (16.0-70.0); PLATELET COUNT 193 TH/MM3 (150-450); RED BLOOD COUNT 3.77 MIL/MM3 (4.50-5.90); RED CELL DISTRIBUTION WIDTH 13.6 % (11.6-17.2); WHITE BLOOD COUNT 8.5 TH/MM3 (4.0-11.0)
[2016-10-27] MEDS: BACITRACIN TOP OINT 15 GM TUBE TOPICAL SCH (09:57)
[2016-10-27] MEDS: METOPROLOL TARTRATE 25 MG TAB PO SCH ×2 (09:58→20:16)
[2016-10-27] MEDS: SODIUM CHLORIDE 0.9% FLUSH 10 ML FLUSH IV FLUSH SCH ×2 (09:58→20:17)
[2016-10-27] MEDS: amLODIPine BESYLATE 5 MG TAB PO SCH (09:58)
--- NOTE | 2016-10-27 14:43 | HHI.PR ---
Subjective Remarks Patient doing well no fever or chills, I talked to him with the help of the nurse, she talked to Dr. Breonna KELLY who plan on seeing the patient with a hand surgeon to assess the wound for antibiotic decision Patient is afebrile, pain is tolerable Objective Vitals Vital Signs Date Time Temp Pulse Resp B/P Pulse Ox O2 Delivery O2 Flow Rate FiO2 10/27/16 08:48 98 21 10/27/16 08:26 98.7 80 17 159/92 95 10/27/16 04:00 98.9 75 18 144/93 97 10/27/16 00:00 97.8 94 18 134/84 98 10/26/16 21:10 98 Room Air 10/26/16 20:00 97.0 74 22 141/87 98 10/26/16 18:18 98 21 10/26/16 15:55 97.0 74 16 114/75 98 I/O 10/26/16 10/26/16 10/26/16 10/27/16 10/27/16 10/27/16 07:00 15:00 23:00 07:00 15:00 23:00 Intake Total 1136 ml 1920 ml 1568 ml 951 ml Output Total 650 ml 10 ml 600 ml Balance 486 ml 1910 ml 1568 ml 351 ml Intake Oral 240 ml 720 ml 780 ml 480 ml IV Total 896 ml 200 ml 788 ml 471 ml Other 1000 ml Output Urine Total 650 ml 600 ml Drainage Total 0 ml Estimated Blood Loss 10 ml # Voids 1 3 1 2 # Bowel Movements 0 0 0 Result Diagram: 10/27/16 0554 10/26/16 0604 Objective Remarks - - GENERAL: This is a well-nourished, well-developed patient, in no apparent distress. CARDIOVASCULAR: Regular rate and rhythm without murmurs, gallops, or rubs. RESPIRATORY: Clear to auscultation. Breath sounds equal bilaterally. No wheezes , rales, or rhonchi. GASTROINTESTINAL: Abdomen soft, non-tender, nondistended. Normal active bowel sounds MUSCULOSKELETAL: Extremities without clubbing, cyanosis, or edema. Left hand in gauze and wound VAC applied NEURO: Alert & Oriented x4 to person, place, time, situation. 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 left had injury with the painting gun with severe pain severe accelerated HTN with tachycardia JUAN vs CKD no known Cr baseline DVT prophilaxis plan: Hand surgeon following, status post I&D with wound VAC 10/24, status post revision closure removing wound VAC 10/26, no culture available, iv requested to see the wound with a hand surgeon to decide on antibiotic pain management with Percocet /Dilaudid Continue Unasyn with the vancomycin per ID Renal ultrasound reviewed personally by me showing possible mass need to be followed up with CT or MRI as an outpt UA only positive for glucosuria started on norvasc and lopressor low dose , clonidine prn to control bp scd for dvt proph Dana Sullivan MD Oct 27, 2016 14:43
--- NOTE | 2016-10-27 15:41 | PD.ORT.PN ---
Subjective Subjective Remarks Spoke with patient through nurse as conference interpreter who speaks fluent Georgian. Patient reports mild pain. Denies paresthesias. Objective Vitals Vital Signs Date Time Temp Pulse Resp B/P Pulse Ox O2 Delivery O2 Flow Rate FiO2 10/27/16 11:55 98.7 98 16 145/88 96 10/27/16 08:48 98 21 10/27/16 08:26 98.7 80 17 159/92 95 10/27/16 04:00 98.9 75 18 144/93 97 10/27/16 00:00 97.8 94 18 134/84 98 10/26/16 21:10 98 Room Air 10/26/16 20:00 97.0 74 22 141/87 98 10/26/16 18:18 98 21 10/26/16 15:55 97.0 74 16 114/75 98 I/O 10/26/16 10/26/16 10/26/16 10/27/16 10/27/16 10/27/16 07:00 15:00 23:00 07:00 15:00 23:00 Intake Total 1136 ml 1920 ml 1568 ml 951 ml Output Total 650 ml 10 ml 600 ml Balance 486 ml 1910 ml 1568 ml 351 ml Intake Oral 240 ml 720 ml 780 ml 480 ml IV Total 896 ml 200 ml 788 ml 471 ml Other 1000 ml Output Urine Total 650 ml 600 ml Drainage Total 0 ml Estimated Blood Loss 10 ml # Voids 1 3 1 2 # Bowel Movements 0 0 0 Result Diagram: 10/27/16 0554 10/26/16 0604 Objective Remarks Dressing removed, incision c/d/i with no necrosis, jamison in place with mild serous drainage, able to fire finger extensors as well as fdp/fds, sitlt radial and ulnar aspect finger, <2 sec capillary refill Assessment & Plan Assessment and Plan POD3 s/p debridement paint left index finger after high injection paint injury at work with wound VAC placement due to significant contamination and swelling POD1 s/p I&D, closure left index finger over jamison drain -IV Ab per ID, culture sent -OT at bedside working on ROM -Possible d/c home tomorrow with followup on Vandana Hickman MD Oct 27, 2016 15:41
[2016-10-27] MEDS ORDERED: PHARMACY ORDERED LAB ONE (17:45)
[2016-10-27] MEDS: VANCOMYCIN INJ 1,500 MG in SODIUM CHLORID 0.9% 500 ML INJ 500 ML IV SCH (19:15)
[2016-10-28 00:29] VITALS: BP 137/90; PULSE 74; RESP 16; TEMP 97.7; O2SAT 99
[2016-10-28] MEDS: LACTATED RINGER'S 1000 ML INJ 1,000 ML IV SCH ×2 (01:45→20:15)
[2016-10-28] MEDS: AMPICILLIN-SULBACTAM INJ 3 GM in SODIUM CHLORIDE 0.9% INJ 100 ML IV SCH ×4 (02:44→20:10)
[2016-10-28] MEDS: HEPARIN SODIUM - SQ 10,000 UNITS/ML VIAL SQ SCH ×3 (02:44→18:08)
[2016-10-28] MEDS: VANCOMYCIN INJ 1,500 MG in SODIUM CHLORID 0.9% 500 ML INJ 500 ML IV SCH ×2 (05:51→18:08)
[2016-10-28 07:55] VITALS: BP 156/91; PULSE 69; RESP 17; TEMP 97.3; O2SAT 99
[2016-10-28] MEDS: BACITRACIN TOP OINT 15 GM TUBE TOPICAL SCH (08:49)
[2016-10-28] MEDS: amLODIPine BESYLATE 5 MG TAB PO SCH (08:49)
[2016-10-28] MEDS: SODIUM CHLORIDE 0.9% FLUSH 10 ML FLUSH IV FLUSH SCH ×2 (08:49→20:10)
[2016-10-28] MEDS: METOPROLOL TARTRATE 25 MG TAB PO SCH ×2 (08:49→20:08)
[2016-10-28] MEDS: SODIUM CHLOR 0.9% 1000 ML INJ 1,000 ML IV SCH ×2 (11:03→20:10)
[2016-10-28] MEDS ORDERED: HYDR-3516 PO (11:26)
[2016-10-28] MEDS ORDERED: AMLO5 PO (11:26)
[2016-10-28] MEDS ORDERED: METO25TA3 PO (11:26)
[2016-10-28 11:35] VITALS: BP 138/83; PULSE 71; RESP 16; TEMP 97.2; O2SAT 98
--- NOTE | 2016-10-28 12:26 | HHI.IDPN ---
Subjective Subjective Remarks 51 yo M sustained pressure injury to his L Index finger S/P debridement x 2 Had debridement again this weekend C/S sent and still pending Feels better Afebrile Antibiotics Unasyn Vanco Allergies: Coded Allergies: No Known Allergies (Unverified , 10/24/16) Objective . Vital Signs Date Time Temp Pulse Resp B/P Pulse Ox O2 Delivery O2 Flow Rate FiO2 10/28/16 08:43 Room Air 10/28/16 07:55 97.3 69 17 156/91 99 10/28/16 00:29 97.7 74 16 137/90 99 10/27/16 20:00 100 Room Air 10/27/16 19:49 99.1 97 16 167/87 100 10/27/16 16:28 97.0 77 16 142/86 99 10/27/16 10/27/16 10/28/16 15:00 23:00 07:00 Intake Total 960 ml 855 ml 696 ml Output Total 300 ml Balance 960 ml 855 ml 396 ml Intake Oral 960 ml 480 ml 240 ml IV Total 375 ml 456 ml Output Urine Total 300 ml # Voids 4 3 # Bowel Movements 2 0 0 . Laboratory Tests Test 10/27/16 05:54 White Blood Count 8.5 TH/MM3 Red Blood Count 3.77 MIL/MM3 Hemoglobin 11.4 GM/DL Hematocrit 34.3 % Mean Corpuscular Volume 91.1 FL Mean Corpuscular Hemoglobin 30.2 PG Mean Corpuscular Hemoglobin 33.1 % Concent Red Cell Distribution Width 13.6 % Platelet Count 193 TH/MM3 Mean Platelet Volume 8.8 FL Neutrophils (%) (Auto) 52.1 % Lymphocytes (%) (Auto) 34.7 % Monocytes (%) (Auto) 8.4 % Eosinophils (%) (Auto) 3.9 % Basophils (%) (Auto) 0.9 % Neutrophils # (Auto) 4.4 TH/MM3 Lymphocytes # (Auto) 3.0 TH/MM3 Monocytes # (Auto) 0.7 TH/MM3 Eosinophils # (Auto) 0.3 TH/MM3 Basophils # (Auto) 0.1 TH/MM3 CBC Comment DIFF FINAL Differential Comment Laboratory Tests Test 10/28/16 05:59 Creatinine 0.96 MG/DL Estimat Glomerular Filtration 83 ML/MIN Rate Microbiology Date/Time Procedure Status Source Growth 10/27/16 14:00 Gram Stain - Final Resulted Wound Finger 10/27/16 14:00 Wound Culture Resulted Wound Finger Pending Imaging Last Impressions Renal Ultrasound 10/24/16 0000 Signed Impressions: Service Date/Time: September 18:07 - CONCLUSION: Possible column of Lucien in the right. Outpatient CT or MRI of the abdomen with contrast may be helpful to rule out subtle solid mass if clinically indicated. Landry Delgado MD Hand X-Ray 10/24/16 0000 Signed Impressions: Service Date/Time: September 15:12 - CONCLUSION: Foreign material tracking along the proximal phalanx of the second finger. Dario Lowe Jr., MD Physical Exam GENERAL: awake and alert, in no apparent distress. SKIN: Cool and dry. No generalized rash or ecchymosis NECK: Supple, nontender, no meningeal signs. CARDIOVASCULAR: Regular rate and rhythm without murmurs, gallops, or rubs. RESPIRATORY: Clear to auscultation. Breath sounds equal bilaterally. No wheezes , rales, or rhonchi. GASTROINTESTINAL: Abdomen soft, non-tender, nondistended. No hepato-splenomegaly , or palpable masses. No guarding. MUSCULOSKELETAL: Has bulky intact dry dressing on his left upper extremity. NEUROLOGICAL: Awake and alert. Non focal PSYCH: Calm and cooperative. Normal affect LINE: PIV with no evidence of infection Assessment & Plan Remarks IMPRESSION [place] paint injury LIF, contamninated wound - S/P debridement RECOMMENDATION Continue Unasyn Continue vanco Monitor progress Follow C/S Maude Krishnamurthy MD Oct 28, 2016 12:26
--- NOTE | 2016-10-28 15:25 | HHI.PR ---
Subjective Remarks Patient afebrile, feeling better venous control, He is status post I&D Objective Vitals Vital Signs Date Time Temp Pulse Resp B/P Pulse Ox O2 Delivery O2 Flow Rate FiO2 10/28/16 11:35 97.2 71 16 138/83 98 10/28/16 08:43 Room Air 10/28/16 07:55 97.3 69 17 156/91 99 10/28/16 00:29 97.7 74 16 137/90 99 10/27/16 20:00 100 Room Air 10/27/16 19:49 99.1 97 16 167/87 100 10/27/16 16:28 97.0 77 16 142/86 99 I/O 10/27/16 10/27/16 10/27/16 10/28/16 10/28/16 10/28/16 07:00 15:00 23:00 07:00 15:00 23:00 Intake Total 951 ml 960 ml 855 ml 696 ml Output Total 600 ml 300 ml Balance 351 ml 960 ml 855 ml 396 ml Intake Oral 480 ml 960 ml 480 ml 240 ml IV Total 471 ml 375 ml 456 ml Output Urine Total 600 ml 300 ml # Voids 2 4 3 # Bowel Movements 0 2 0 0 Result Diagram: 10/27/16 0554 10/28/16 0559 Objective Remarks - - GENERAL: This is a well-nourished, well-developed patient, in no apparent distress. CARDIOVASCULAR: Regular rate and rhythm without murmurs, gallops, or rubs. RESPIRATORY: Clear to auscultation. Breath sounds equal bilaterally. No wheezes , rales, or rhonchi. GASTROINTESTINAL: Abdomen soft, non-tender, nondistended. Normal active bowel sounds MUSCULOSKELETAL: Extremities without clubbing, cyanosis, or edema. Left hand in gauze and wound VAC applied NEURO: Alert & Oriented x4 to person, place, time, situation. 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 left had injury with the painting gun with severe pain severe accelerated HTN with tachycardia JUAN vs CKD no known Cr baseline Glucosuria with increased fasting blood glucose rule out DM DVT prophilaxis plan: Hand surgeon following, status post I&D with wound VAC 10/24, status post revision closure removing wound VAC 10/26, wound cx sent yesterday pain management with Percocet /Dilaudid Continue Unasyn with the vancomycin per ID, awaiting culture result Renal ultrasound reviewed personally by me showing possible mass need to be followed up with CT or MRI as an outpt UA only positive for glucosuria with increase fasting blood glucose, will check A1c, ISS with Accu-Chek every before meals daily at bedtime started on norvasc and lopressor low dose , clonidine prn to control bp scd for dvt proph Dana Sullivan MD Oct 28, 2016 15:25
[2016-10-28] MEDS ORDERED: GLUCAGON 1 MG/ML VIAL OTHER PRN (15:30)
[2016-10-28] MEDS ORDERED: DEXTROSE 50% IN WATER 50 ML VIAL(D50) IV PUSH PRN (15:30)
[2016-10-28] MEDS: INSULIN NovoLIN REGULAR SUPPLEMENTAL SCALE SQ SCH ×2 (15:37→20:10)
[2016-10-28 15:55] VITALS: BP 162/81; PULSE 82; RESP 16; TEMP 97.3; O2SAT 97
[2016-10-28 20:00] VITALS: BP 161/91; PULSE 83; RESP 18; TEMP 98.2; O2SAT 100
--- NOTE | 2016-10-28 20:32 | PD.ORT.PN ---
Subjective Subjective Remarks Spoke with patient through [facility] sign language interpreter. Patient reports mild pain. Denies paresthesias. Objective Vitals Vital Signs Date Time Temp Pulse Resp B/P Pulse Ox O2 Delivery O2 Flow Rate FiO2 10/28/16 15:55 97.3 82 16 162/81 97 10/28/16 11:35 97.2 71 16 138/83 98 10/28/16 08:43 Room Air 10/28/16 07:55 97.3 69 17 156/91 99 10/28/16 00:29 97.7 74 16 137/90 99 I/O 10/27/16 10/27/16 10/27/16 10/28/16 10/28/16 10/28/16 07:00 15:00 23:00 07:00 15:00 23:00 Intake Total 951 ml 960 ml 855 ml 696 ml 1731 ml Output Total 600 ml 300 ml Balance 351 ml 960 ml 855 ml 396 ml 1731 ml Intake Oral 480 ml 960 ml 480 ml 240 ml 960 ml IV Total 471 ml 375 ml 456 ml 771 ml Output Urine Total 600 ml 300 ml # Voids 2 4 3 4 # Bowel Movements 0 2 0 0 2 Result Diagram: 10/27/16 0554 10/28/16 0559 Objective Remarks Dressing removed, incision c/d/i with no necrosis, jamison in place with mild serous drainage, able to fire finger extensors as well as fdp/fds, sitlt radial and ulnar aspect finger, <2 sec capillary refill Assessment & Plan Assessment and Plan POD4 s/p debridement paint left index finger after high injection paint injury at work with wound VAC placement due to significant contamination and swelling POD2 s/p I&D, closure left index finger over jamison drain -IV Ab per ID, culture sent -OT at bedside working on ROM -Drain removed -Cleared for discharge by hand surgery, followup in office Vandana Larsen MD Oct 28, 2016 20:31
[2016-10-28 22:04] LABS: HEMOGLOBIN A1a 1.1 %; HEMOGLOBIN A1b 1.7 %; HEMOGLOBIN Ao 83.9 %; HEMOGLOBIN LA1C 2.4 %; HEMOGLOBIN P3 4.1 %
[2016-10-29] VITALS: BP 134/76; PULSE 71; RESP 17; TEMP 97.8; O2SAT 97
[2016-10-29] MEDS: HEPARIN SODIUM - SQ 10,000 UNITS/ML VIAL SQ SCH ×2 (02:59→10:02)
[2016-10-29] MEDS: AMPICILLIN-SULBACTAM INJ 3 GM in SODIUM CHLORIDE 0.9% INJ 100 ML IV SCH ×2 (02:59→09:36)
[2016-10-29] MEDS ORDERED: PHARMACY ORDERED LAB ONE (05:45)
[2016-10-29] MEDS: VANCOMYCIN INJ 1,500 MG in SODIUM CHLORID 0.9% 500 ML INJ 500 ML IV SCH (05:48)
[2016-10-29] MEDS: INSULIN NovoLIN REGULAR SUPPLEMENTAL SCALE SQ SCH ×2 (06:21→11:00)
[2016-10-29 08:00] VITALS: BP 120/72; PULSE 70; RESP 19; TEMP 97.8; O2SAT 97
[2016-10-29] MEDS: METOPROLOL TARTRATE 25 MG TAB PO SCH (09:36)
[2016-10-29] MEDS: SODIUM CHLOR 0.9% 1000 ML INJ 1,000 ML IV SCH (09:37)
[2016-10-29] MEDS: SODIUM CHLORIDE 0.9% FLUSH 10 ML FLUSH IV FLUSH SCH (09:37)
[2016-10-29] MEDS: BACITRACIN TOP OINT 15 GM TUBE TOPICAL SCH (09:38)
[2016-10-29] MEDS ORDERED: AUGM500T7 PO (09:43)
--- NOTE | 2016-10-29 11:20 | HHI.DS ---
Discharge Summary Admission Date Oct 24, 2016 at 16:51 Discharge Date: Oct 29, 2016 Admitting Diagnosis hand paint injection injury (1) High-pressure injection injury of finger of left hand ICD Code: S69.82XA Procedures s/p debridement paint left index finger after high injection paint injury at work with wound VAC placement due to significant contamination and swelling s/p I&D, closure left index finger over jamison drain Brief History - From Admission 51 years old male presented to the ED with anticipation of injury of injection pain spray or gone in his left dorsal side of the hand about 1 hour prior to arrival, patient have significant swelling in the dorsum of the hand with severe pain and tenderness range of motion of the arm intact there is an area of draining yellowish glue he liquid. Patient rated his pain as 10 out of 10. His blood pressure is 210/120, patient denied being aware of any problem with hypertension, also his heart rate is in the 110 CBC/BMP: 10/27/16 0554 10/28/16 0559 Significant Findings Laboratory Tests Test 10/27/16 10/27/16 10/28/16 10/28/16 05:54 18:15 05:59 17:55 Red Blood Count 3.77 MIL/MM3 (4.50-5.90) Hemoglobin 11.4 GM/DL (13.0-17.0) Hematocrit 34.3 % (39.0-51.0) Monocytes (%) (Auto) 8.4 % (0.0-8.0) Vancomycin Level Trough 3.0 MCG/ML (5.0-10.0) Estimat Glomerular Filtration 83 ML/MIN (>89) Rate Hemoglobin A1c 6.3 % (4.3-6.0) Test 10/29/16 05:45 Vancomycin Level Trough 11.8 MCG/ML (5.0-10.0) PE at Discharge - - GENERAL: This is a well-nourished, well-developed patient, in no apparent distress. CARDIOVASCULAR: Regular rate and rhythm without murmurs, gallops, or rubs. RESPIRATORY: Clear to auscultation. Breath sounds equal bilaterally. No wheezes , rales, or rhonchi. GASTROINTESTINAL: Abdomen soft, non-tender, nondistended. Normal active bowel sounds MUSCULOSKELETAL: Extremities without clubbing, cyanosis, or edema. Left hand in gauze and wound VAC applied NEURO: Alert & Oriented x4 to person, place, time, situation. Moves all ext x4 Hospital Course 51 years old male admitted for accidental paint gun injection in the left hand, and surgery consulted, iv antibiotics started, patient had debridement paint left index finger after high injection paint injury at work with wound VAC placement due to significant contamination and swelling Also s/p I&D, closure left index finger over jamison drain, ultrasound, ID consulted, adjusted antibiotic to Augmentin at discharge. He should follow up with hand surgeon on [id number] encounter performed with the patient on discharge day, as well as physical exam, summary of hospitalization course and postdischarge plan has been D/W the patient. D/W nurse D/W family independence case manager. D/W ID regarding discharge antibiotic regimen Discharge medications reviewed and printed and signed, post discharge follow up visit with PCP and other specialist as well as Brief hospital course and discharge summary has been placed. Pt Condition on Discharge: Fair Discharge Disposition: Discharge Home Discharge Time: > 30 minutes Discharge Instructions DIET: Follow Instructions for: Heart Healthy Diet Activities you can perform: Weight Bearing as Ambar Follow up Referrals: Hand Surgery - 2-3 Days with Vandana Larsen MD New Medications: Amoxicillin-Clavulanate (Augmentin) 500-125 mg Tab 500 MG PO Q8H Infection #42 Ref 0 TAB Amlodipine (Norvasc) 5 Mg Tab 10 MG PO DAILY htn #30 TAB Hydrocodone-Acetaminophen (Hydrocodone-Acetaminophen) 5-325 mg Tab 1 TAB PO Q4H PRN PAIN SCALE 3 TO 5 #15 TAB Metoprolol Tartrate (Metoprolol Tartrate) 25 Mg Tab 25 MG PO Q12HR htn #60 TAB Dana Sullivan MD Oct 29, 2016 11:20
--- NOTE | 2016-10-30 08:35 | MP ---
cc: VANDANA LARSEN MD DATE OF SURGERY 10/26/2016 PREOPERATIVE DIAGNOSIS Open wound left hand and index finger after high pressure paint injection injury with Vac in place. POSTOPERATIVE DIAGNOSIS Open wound left hand and index finger after high pressure paint injection injury with Vac in place. PROCEDURE 1. Irrigation debridement open wound including skin, subcutaneous tissue, muscle and removal of foreign body. 2. Complex secondary closure open wound measuring 13 x 2 cm over a Missy drain SURGEON Dr. Vandana Larsen ANESTHESIA General TOURNIQUET TIME None DRAINS One Missy INDICATIONS FOR PROCEDURE Konstantin Berg is a pleasant 51-year-old right-hand dominant male who speaks [place]ien. He was admitted on 10/24/2016 after sustaining a high injection paint gun injury to the left hand and index finger. He was taken emergently to the operating room for debridement and placement of a Vac. He tolerated the procedure well. His wound was healing nicely on rounds yesterday and he was consented for repeat irrigation debridement, possible Vac change, possible closure and he elected to proceed. The risks were explained to include, but not limited to wound complications, infection, need for additional surgeries, necrosis of the finger, amputation of the finger, pain, and stiffness and he elected to proceed and this was done through the drilling engineer. DESCRIPTION OF PROCEDURE The patient was identified in the preoperative holding area and the correct extremity was marked. The patient was taken back to the operating room where anesthesia was induced. The left upper extremity was prepped and draped in a normal sterile fashion. The prior Vac dressing was removed. There was healthy tissue underneath with a small amount of paint remaining. The remaining paint was removed as much as possible. The wound was irrigated with three liters of antibiotic saline. The decision was made to attempt to close the skin over the dorsum of the finger and then possibly place a Vac over the hand. The skin was closed loosely in a simple fashion with 4-0 chromic. Following this, a Doppler was used to ensure good refill to the finger. The patient had less than 2-second capillary refill to the finger and had dopplerable radial and ulnar pulses. The decision was made to then close the skin over the hand to prevent any maceration from the Vac over a drain. A [place] drain was placed in the dorsum of the hand. The patient tolerated the procedure without any complications. He was placed into a bulky dressing and awoken from anesthesia without any complications. He will remain admitted to the hospital for medical evaluation by the medical service due to significant hypertension, antibiotics by the infectious disease doctor and close followup. I will change his dressing tomorrow. MD LISETH Robles/ALLY /10:34 AM /8:26 AM MTDD
--- NOTE | 2016-10-30 09:05 | MP ---
cc: VANDANA LARSEN DATE OF SURGERY 10/24/2016 PREOPERATIVE DIAGNOSIS High-pressure paint injection injury left hand. POSTOPERATIVE DIAGNOSIS High-pressure paint injection injury left hand. PROCEDURE 1. Irrigation debridement left hand and index finger including skin and subcutaneous tissue, muscle including removal of foreign bodies. 2. Removal of foreign bodies left hand and index fingers 3. Placement of a Vac dressing left hand. 4. Exploration of penetrating wound left hand. 5. Interpretation of fluoroscopy left index finger by the surgeon throughout the procedure. SURGEON Dr. Vandana Larsen ANESTHESIA General TOURNIQUET TIME None SPECIMEN Foreign body sent for pathology from the left hand. INDICATIONS FOR PROCEDURE Konstantin Berg is a 51-year-old male who sustained a high pressure paint injection injury to his left hand and left index finger. He was consented for emergent irrigation, debridement, possible Vac surgery as indicated and he elected to proceed through the patient accounting representative. He understands he is at very high risk for necrosis of the skin, amputation of the finger, stiffness, pain and problems and he elected to proceed. DESCRIPTION OF PROCEDURE The patient was identified in the preoperative holding area and the correct extremity was marked. The patient was taken to the operating room where anesthesia was induced. The left upper extremity was prepped and draped in a normal sterile fashion. The puncture wound over the dorsum of the left index finger was extended proximally and distally in a curvilinear fashion. There was very significant paint throughout the finger. The incision was extended to the middle phalanx and almost to the level of the wrist due to the significant contamination. Some of the material was sent for pathology. The wound was irrigated with six liters of antibiotic saline. Care was taken to remove as much of the paint as possible without injuring the digital arteries. X-ray confirmed significant removal of the paint. A Doppler was used to confirm a dopplerable pulse to the index finger on both the radial and ulnar side. The decision was made to place a Vac. A white sponge Vac dressing was placed over the dorsum of the wound as there was significant swelling over the finger. This was at 125 mm of continuous pressure. The patient was placed into a splint and awoken from anesthesia without any complications. He will remain admitted to the hospital for IV antibiotics and likely will require serial debridements. MD MASON Robles /9:32 PM /8:53 AM [facility]
== END 2016-10-29 13:37 | disposition home or self-care (01) | DRG 914 ==
LOC: NEPA 13:49 → NEDA 16:51 → N06A 23:10
PROVIDERS: ADMIT Hospitalist; ATTEND Hospitalist
PROC: 0JCK0ZZ Extirpation of Matter from Left Hand Subcutaneous Tissue and Fascia, Open Approach (ICD-10-PCS; principal; 2016-10-24 19:32)
PROC: 0JCK0ZZ Extirpation of Matter from Left Hand Subcutaneous Tissue and Fascia, Open Approach (ICD-10-PCS; 2016-10-26)
DX: S61.422A Laceration with foreign body of left hand, initial encounter (principal); I10 Essential (primary) hypertension; S61.221A Laceration with foreign body of left index finger without damage to nail, initial encounter; N28.9 Disorder of kidney and ureter, unspecified; W29.8XXA Contact with other powered hand tools and household machinery, initial encounter; Y93.89 Activity, other specified; Y92.69 Other specified industrial and construction area as the place of occurrence of the external cause; Y99.0 Civilian activity done for income or pay
CPT/HCPCS: 73130; 76775; 80048; 80053; 80202; 81001; 82565; 82570; 82948; 83036; 84156; 84300; 85025; 85610; 87070; 87205; 88300; 88304; 88305; 90471; 90714; 96365; 96375; J0295; J0690; J1170; J1644; J2250; J2270; J2310; J2370; J2405; J3010; J3370; J7030; J7040; J7120